=== PATIENT | male | born 1995 | race Hispanic/Latino ===

== ENCOUNTER 2017-11-04 16:55 | Emergency (ER) | payer OTHER ==
[2017-11-04] MEDS ORDERED: IBUPROFEN 600 MG TABLET ONE (17:22)
[2017-11-04 17:42] LABS: RAPID GROUP A STREP NEGATIVE (NEGATIVE)
[2017-11-04] MEDS ORDERED: SODIUM CHLORIDE 0.9% 1000ML 1,000 ML IV ONE (18:01)
== END 2017-11-04 18:45 | disposition home or self-care (01) ==
LOC: EDH 16:55
DX: J09.X2 Influenza due to identified novel influenza A virus with other respiratory manifestations (principal); Z72.0 Tobacco use
CPT/HCPCS: 71046; 87804 ×2; 87880; 99285; J7030

== ENCOUNTER 2018-03-07 08:01 | Emergency (ER) | payer SELFPAY ==
[2018-03-07] MEDS ORDERED: DEXAMETHASONE SOD PHOSPHATE 10MG/ML 1ML VIAL ONE (09:12)
[2018-03-07] MEDS ORDERED: DiphenhydrAMINE HCL 50 MG/ML VIAL ONE (09:13)
== END 2018-03-07 10:00 | disposition home or self-care (01) ==
LOC: EDH 08:01
DX: T78.49XA Other allergy, initial encounter (principal); Z72.0 Tobacco use; X58.XXXA Exposure to other specified factors, initial encounter
CPT/HCPCS: 96372; 99283; J1100; J1200

== ENCOUNTER 2021-05-30 15:23 | Emergency (ER) | payer OTHER, SELFPAY ==
[~2021-05-30] VITALS: Ht 177.8 cm; Wt 81.6 kg
[2021-05-30] MEDS ORDERED: NIRM1TAB PO (16:34)
[2021-05-30] MEDS ORDERED: ACET-66 PO (16:34)
[2021-05-30 17:02] VITALS: BP 137/76
== END 2021-05-30 17:07 | disposition home or self-care (01) ==
LOC: EDH 15:23
DX: U07.1 COVID-19 (principal)
CPT/HCPCS: 87635; 99283; C9803